=== PATIENT | male | born 1950 | race Caucasian/White ===

== ENCOUNTER → 2017-07-30 | Outpatient (CLI) | payer MEDICARE ==
--- NOTE | 2017-07-30 15:46 | XR ---
EXAMINATION TYPE: XR hand complete RT DATE OF EXAM: 07/30/2017 CLINICAL HISTORY: Right thumb pain TECHNIQUE: Frontal, lateral and oblique images of the right hand are obtained. COMPARISON: None FINDINGS: There is no acute fracture/dislocation evident in the right hand. There is narrowing of th e first carpometacarpal joint with mild sclerosis and hypertrophic osseous change. The remaining join t spaces in the right hand appear within normal limits. The overlying soft tissue appears unremarkab le. IMPRESSION: 1. There is no acute fracture or dislocation in the right hand. 2. Mild arthropathy at the first carpometacarpal joint.
== END ==
LOC: RADXRMAIN 15:23
PROVIDERS: ATTEND Family Medicine
DX: M18.11 Unilateral primary osteoarthritis of first carpometacarpal joint, right hand (principal)

== ENCOUNTER 2018-10-12 13:39 | Emergency (ER) | payer MEDICARE ==
[2018-10-12 14:41] LABS: Basophils # (A) 0.1 k/uL (0-0.2); Basophils % (A) 1 %; Eosinophils # (A) 0.2 k/uL (0-0.7); Eosinophils % (A) 3 %; HCT 40.4 % (39.0-53.0); HGB 13.4 gm/dL (13.0-17.5); Lymphocytes # (A) 2.5 k/uL (1.0-4.8); Lymphocytes % (A) 36 %; MCH 30.7 pg (25.0-35.0); MCHC 33.3 g/dL (31.0-37.0); Mean Platelet Volume 6.1; Monocytes # (A) 0.6 k/uL (0-1.0); Monocytes % (A) 8 %; Neutrophils # (A) 3.4 k/uL (1.3-7.7); Neutrophils % (A) 48 %; Platelet Count 255 k/uL (150-450); RBC 4.39 m/uL (4.30-5.90); RDW 12.6 % (11.5-15.5); WBC 6.9 k/uL (3.8-10.6)
[2018-10-12 14:46] LABS: ALT 41 U/L (21-72); AST 30 U/L (17-59); Albumin 4.1 g/dL (3.5-5.0); Alkaline Phosphatase 64 U/L (38-126); Anion Gap 6 mmol/L; Blood Urea Nitrogen 19 mg/dL (9-20); Calcium 9.5 mg/dL (8.4-10.2); Carbon Dioxide 28 mmol/L (22-30); Chloride 106 mmol/L (98-107); Glucose 105 mg/dL (74-99); Potassium 4.4 mmol/L (3.5-5.1); Sodium 140 mmol/L (137-145); Total Bilirubin 0.6 mg/dL (0.2-1.3); Total Protein 6.6 g/dL (6.3-8.2)
--- NOTE | 2018-10-12 14:46 | ED ---
Recheck HPI - General Chief Complaint: Recheck/Abnormal Lab/Rx Stated Complaint: Dr fleming, needs sodium test Time Seen by Provider: 10/12/18 13:49 Source: patient Mode of arrival: ambulatory Limitations: no limitations - History of Present Illness Initial Comments: 68-year-old male with no past medical history presenting today for chief complaint of abnormal value. Patient states he received a phone call after getting routine labs done by his primary care provider at physical examination for low sodium. He was told immediately to present to the emergency department for redraw. Patient states that he had no symptoms and continues to be asymptomatic stating he feels "normal". He decided he would go when he is up and about today. Patient continues to deny any symptoms.Patient denies any recent fever, chills, shortness of breath, chest pain, back pain, abdominal pain , nausea or vomiting, numbness or tingling, dysuria or hematuria, constipation or diarrhea, headaches or visual changes, or any other complaints. He feels that this is a laboratory error. Upon arrival patient's vital signs within acceptable limits. Patient is well-appearing and pleasant. - Related Data Home Medications Medication Instructions Recorded Confirmed Ibuprofen [Motrin Ib] 600 mg PO DAILY PRN 10/12/18 10/12/18 Allergies Allergy/AdvReac Type Severity Reaction Status Date / Time No Known Allergies Allergy Verified 10/12/18 14:35 Review of Systems ROS Statement: Those systems with pertinent positive or pertinent negative responses have been documented in the HPI. ROS Other: All systems not noted in ROS Statement are negative. Past Medical History Past Medical History: No Reported History History of Any Multi-Drug Resistant Organisms: None Reported Past Surgical History: No Surgical Hx Reported Past Psychological History: No Psychological Hx Reported Smoking Status: Never smoker Past Alcohol Use History: Daily Past Drug Use History: Marijuana General Exam - General Exam Comments Initial Comments: General: The patient is awake and alert, in no distress, and does not appear acutely ill. Eye: Pupils are equal, round and reactive to light, extra-ocular movements are intact. No nystagmus. There is normal conjunctiva bilaterally. No signs of icterus. Ears, nose, mouth and throat: There are moist mucous membranes and no oral lesions. Neck: The neck is supple, there is no tenderness or JVD. Cardiovascular: There is a regular rate and rhythm. No murmur, rub or gallop is appreciated. Respiratory: Lungs are clear to auscultation, respirations are non-labored, breath sounds are equal. No wheezes, stridor, rales, or rhonchi. Gastrointestinal: Soft, non-distended, non-tender abdomen without masses or organomegaly noted. There is no rebound or guarding present. No CVA tenderness. Bowel sounds are unremarkable. Musculoskeletal: Normal ROM, no tenderness. Strength 5/5. Sensation intact. Pulses equal bilaterally 2+. Neurological: A&O x 3. CN II-XII intact, There are no obvious motor or sensory deficits. Coordination appears grossly intact. Speech is normal. Skin: Skin is warm and dry and no rashes or lesions are noted. Psychiatric: Cooperative, appropriate mood & affect, normal judgment. Limitations: no limitations Course Vital Signs 10/12/18 10/12/18 13:42 15:26 Temperature 97.7 F 98.5 F Pulse Rate 63 57 L Respiratory 16 18 Rate Blood Pressure 168/79 119/85 O2 Sat by Pulse 99 97 Oximetry Medical Decision Making - Medical Decision Making Repeat sodium level CXL within normal limits. Patient denies any symptoms at this time do feel initial lab value was laboratory ear. Patient discharged stable condition. Patient agreeable plan discharge. Patient is to follow-up with primary care provider. I did discuss this case with Dr. Bazan attending physician briefly he agreed impression and plan. Patient discharged - Lab Data Result diagrams: 10/12/18 14:13 10/12/18 14:13 Lab Results 10/12/18 10/12/18 Range/Units 14:13 14:13 WBC 6.9 (3.8-10.6) k/uL RBC 4.39 (4.30-5.90) m/uL Hgb 13.4 (13.0-17.5) gm/dL Hct 40.4 (39.0-53.0) % MCV 92.0 (80.0-100.0) fL MCH 30.7 (25.0-35.0) pg MCHC 33.3 (31.0-37.0) g/dL RDW 12.6 (11.5-15.5) % Plt Count 255 (150-450) k/uL Neutrophils % 48 % Lymphocytes % 36 % Monocytes % 8 % Eosinophils % 3 % Basophils % 1 % Neutrophils # 3.4 (1.3-7.7) k/uL Lymphocytes # 2.5 (1.0-4.8) k/uL Monocytes # 0.6 (0-1.0) k/uL Eosinophils # 0.2 (0-0.7) k/uL Basophils # 0.1 (0-0.2) k/uL Sodium 140 (137-145) mmol/L Potassium 4.4 (3.5-5.1) mmol/L Chloride 106 (98-107) mmol/L Carbon Dioxide 28 (22-30) mmol/L Anion Gap 6 mmol/L BUN 19 (9-20) mg/dL Creatinine 0.73 (0.66-1.25) mg/dL Est GFR (CKD-EPI)AfAm >90 (>60 ml/min/1.73 sqM) Est GFR (CKD-EPI)NonAf >90 (>60 ml/min/1.73 sqM) Glucose 105 H (74-99) mg/dL Calcium 9.5 (8.4-10.2) mg/dL Total Bilirubin 0.6 (0.2-1.3) mg/dL AST 30 (17-59) U/L ALT 41 (21-72) U/L Alkaline Phosphatase 64 (38-126) U/L Total Protein 6.6 (6.3-8.2) g/dL Albumin 4.1 (3.5-5.0) g/dL Disposition Clinical Impression: Normal exam, Encounter for laboratory test Disposition: HOME SELF-CARE Condition: Good Additional Instructions: Please follow-up with family doctor in the next 2 days or as previously scheduled. Please return to emergency room if the symptoms increase or worsen or for any other concerns. Is patient prescribed a controlled substance at d/c from ED?: No Referrals: Porfirio Asif MD [Primary Care Provider] - 1-2 days Time of Disposition: 14:53
[2018-10-12 15:26] VITALS: BP 119/85; PULSE 57; RESP 18; TEMP 98.5
== END 2018-10-12 15:32 | disposition home or self-care (01) ==
LOC: EC 13:39
DX: Z00.00 Encounter for general adult medical examination without abnormal findings (principal)
CPT/HCPCS: 36415; 80053; 85025; 99282

== ENCOUNTER → 2018-10-24 | Outpatient (CLI) | payer MEDICARE ==
--- NOTE | 2018-10-24 20:55 | MR ---
EXAMINATION TYPE: MR knee RT wo con DATE OF EXAM: 10/24/2018 COMPARISON: Outside right knee x-ray October 11, 2018 HISTORY: Osteoarthritis, pain, cystic medial meniscus, degenerative meniscal tear, and possible lesio n/fracture proximal right tibia/fibula all per order. TECHNIQUE: Multiplanar, multisequence images of the knee is performed without IV contrast. FINDINGS: MEDIAL MENISCUS: Anterior horn is intact without tear. Triangular shape signal posterior horn extends to inferior articular surface. LATERAL MENISCUS: Anterior horn is intact without tear. There is ovoid increased signal centrally pos terior horn of lateral meniscus does not extend to articular surface seen best sagittal image 26. CRUCIATE LIGAMENTS: The anterior and posterior cruciate ligaments are intact. Increased signal is pre sent. COLLATERAL LIGAMENTS: The medial collateral ligament and lateral collateral ligament complex are inta ct and unremarkable. EXTENSOR MECHANISM: Visualized quadriceps and patellar tendons are intact. Prominent spur from anteri or superior patella is identified with mild surrounding edema. EFFUSION: No significant suprapatellar joint effusion. POPLITEAL CYST: There is tiny popliteal/hernandes cyst. TRICOMPARTMENT SPACES: There is mild to moderate tricompartment joint space loss without significant spurring. CARTILAGE: There is some chondromalacia patella with thinning of articular cartilage along the incinerator plant general supervisor ior patellar pole particularly inferiorly. Mild cartilaginous loss medial tibial femoral compartment is present. BONE MARROW SIGNAL: Susceptibility artifact along medial aspect proximal tibial metaphysis and medial patellar pole is identified presumed postsurgical, correlate clinically. There is slight irregularit y along the central tibial plateau without ossific fracture fragments or suspicious edema, favor norm al variant. OTHER: No additional significant abnormality is appreciated. IMPRESSION: 1. Full-thickness tear posterior horn of medial meniscus. 2. Intrasubstance tear posterior horn of lateral meniscus. 3. Myxoid degeneration ACL. 4. Mild to moderate tricompartment degenerative changes as detailed above. 5. Susceptibility artifact, suspect prior surgical change medial patellar and medial anterior tibial epiphysis. 6. Tiny popliteal cyst. 7. Prominent spur superior patella with tendinosis distal quadriceps tendon.
== END | disposition home or self-care (01) ==
LOC: RADMRIMAIN 06:08
PROVIDERS: ATTEND Orthopaedic Surgery
DX: S83.241A Other tear of medial meniscus, current injury, right knee, initial encounter (principal); S83.281A Other tear of lateral meniscus, current injury, right knee, initial encounter; M25.861 Other specified joint disorders, right knee; M17.11 Unilateral primary osteoarthritis, right knee; M67.863 Other specified disorders of tendon, right knee

== ENCOUNTER → 2024-01-10 | Outpatient (CLI) | payer MEDICARE ==
--- NOTE | 2024-01-10 13:55 | CA ---
Lexiscan Nuclear Stress Test Report Name: Keegan Perry Exam Date: 01/10/2024 09:46 Exam Location: [place] Stress Ht (in): 70 Wt (lb): 185 BSA: 2.02 Ordering Phys: Baltazar Villanueva MD Referring Phys: CARRINGTON Technologist: Emery Beard Age: 73 Gender: M : 1950 Procedure CPT: Indications: I10 HTN ICD-10 Codes: Patient History: PALPITATIONS, HTN, FAMILY HX OF HEART DISEASE Medications: Meds past 24 hrs: Pretest Chest Pain: STRESS TEST Lexiscan Protocol Exercise Duration (min:sec): 02:[address] Depressions (mm): Angina Score: Sousa Score: Resting HR (bpm): 45 Peak HR (bpm): 74 Resting BP (mmHg): 113 / 57 Peak BP (mmHg): 128 / 52 MPHR: 145 Target HR: 123 % MPHR: 51 METS: 1.0 Total Dose: Peak Dose: Atropine: Double Product: 9472 BP Response: Stress Termination: INFUSION COMPLETE Stress Symptoms: NO SYMPTOMS Stress Summary: ECG ANALYSIS Resting ECG: Stress ECG: CONCLUSIONS Nondiagnostic stress testing Dr. Suman Alfred MD (Electronically Signed) Final Date: 10 January 2024 13:54
== END | disposition home or self-care (01) ==
LOC: RADNMMAIN 08:12
PROVIDERS: ATTEND Family Medicine
DX: I10 Essential (primary) hypertension (principal); I20.89 Other forms of angina pectoris
CPT/HCPCS: 93017; 78452; A9500